=== PATIENT | male | born 1960 ===

== ENCOUNTER 2017-10-30 07:22 | Outpatient (CLI) | payer OTHER ==
[~2017-10-30 07:22] MED LIST: DEPAKOTE ER250 MG; DICY10CA; IMITREX50 MG; LOSARTAN POTAS100 MG; MECLIZINE HCL25 MG PO
== END 2017-10-30 07:43 | disposition home or self-care (01) ==
LOC: TOM 07:22
DX: K56.50 Intestinal adhesions [bands], unspecified as to partial versus complete obstruction (principal); K57.30 Diverticulosis of large intestine without perforation or abscess without bleeding